=== PATIENT | female | born 1960 | race Caucasian/White ===

== ENCOUNTER → 2017-01-16 | Outpatient (CLI) | payer BC ==
--- NOTE | 2017-01-18 20:57 | RAD ---
DATE: 01/16/2017 EXAM: DIGITAL SCREEN BILAT W/CAD HISTORY: Routine screening COMPARISON: Previous mammogram from 2016 This study was interpreted with the benefit of Computerized Aided Detection (CAD ). FINDINGS: Breast density category B: There are scattered areas of fibroglandular density. The skin and nipples are within normal limits. Benign bilateral calcifications. Stable group of macrocalcifications are seen in the upper outer quadrant of the right breast. Stable regional calcifications are seen in the upper outer quadrant of the left breast. IMPRESSION: Stable calcifications in the right and left upper outer breast. The only comparison study available is from 2016. Although these calcifications are stable from prior study and most likely benign, bilateral magnification views of the breasts recommended for better evaluation of the morphology of these calcifications. No breast mass seen. BI-RADS CATEGORY: BI-RADS 0 RECOMMENDED FOLLOW-UP: ADD ADDITIONAL IMAGING. Bilateral magnification views of the breasts. PQRS compliance statement: Patient information was entered into a reminder system with a target due date for the next mammogram. Mammography is a sensitive method for finding small breast cancers, but it does not detect them all and is not a substitute for careful clinical examination. A negative mammogram does not negate a clinically suspicious finding and should not result in delay in biopsying a clinically suspicious abnormality. "Our facility is accredited by the [employer] Mammography [employer]." MTDD
== END | disposition home or self-care (01) ==
LOC: MAMMO 14:53
PROVIDERS: ATTEND Obstetrics & Gynecology
DX: Z12.31 Encounter for screening mammogram for malignant neoplasm of breast (principal)
CPT/HCPCS: G0202; 77067

== ENCOUNTER → 2017-01-29 | Outpatient (CLI) | payer BC ==
--- NOTE | 2017-01-30 13:37 | RAD ---
DATE: 01/29/2017 EXAM: DIGITAL DIAGNOSTIC BILATERAL HISTORY: Calcifications in the breast on screening COMPARISON: Screening examination 01/16/2017 FINDINGS: Breast Density: . Small punctate calcifications are seen in the upper outer right breast. Abundant calcifications are seen in the left breast. These calcifications do not appear to have changed substantially when compared to the examination in January,. The cone compression magnification views do not show jerrica calcifications strongly worrisome for malignancy. Given the lack of jacquard loom card changer the one year time frame biopsy is not felt warranted at this time but a single follow-up examination targeted to these calcifications,, bilaterally, establishing stability, in 6 months is now advised IMPRESSION: Probable benign findings BI-RADS CATEGORY: 3 PROBABLE BENIGN FINDING(S-SHORT INTERVAL FOLLOW-UP SUGGESTED RECOMMENDED FOLLOW-UP: 6M 6 MONTH FOLLOW-UP PQRS compliance statement: Patient information was entered into a reminder system with a target due date 07/27/2017 for the next mammogram. Mammography is a sensitive method for finding small breast cancers, but it does not detect them all and is not a substitute for careful clinical examination. A negative mammogram does not negate a clinically suspicious finding and should not result in delay in biopsying a clinically suspicious abnormality. "Our facility is accredited by the [employer] Mammography [employer]." MTDD
== END | disposition home or self-care (01) ==
LOC: MAMMO 14:53
PROVIDERS: ATTEND Obstetrics & Gynecology
DX: R92.1 Mammographic calcification found on diagnostic imaging of breast (principal)
CPT/HCPCS: G0204; 77066